=== PATIENT | male | born 1960 | race Caucasian/White ===

== ENCOUNTER → 2016-08-13 | Outpatient (CLI) | payer OTHER ==
--- NOTE | 2016-08-13 12:50 | MR ---
EXAMINATION TYPE: MR shoulder LT wo con DATE OF EXAM: 08/13/2016 10:07 AM COMPARISON: NONE HISTORY: Left shoulder pain TECHNIQUE: Multiplanar, multisequence imaging of the left shoulder is performed without contrast. FINDINGS: Rotator Cuff: There is thickening of the distal margin of the supraspinatus tendon. Findings compatib le with tendinosis. At the insertion there is a partial tear involving the anterior fibers measuring approximately 5 mm. No retraction. Acromioclavicular Joint: Mild hypertrophic change is noted. There does appear to be mass effect upon the supraspinatus tendon and muscle. Findings compatible with impingement. Glenohumeral Joint: No sizable joint effusion. Inferior glenohumeral ligament intact. Labrum: The labrum appears grossly intact given limitation of non-arthrogram study. Biceps Tendon: The long head of biceps is in normal location within bicipital groove. Fluid surroundi ng the biceps tendon is compatible with bicipital tendinosis. Bone marrow signal: Tiny cystic change involving the head of the humerus appears benign. IMPRESSION: 1. Tendinosis distal supraspinatus tendon with partial through thickness tear involving the anterior fibers measuring 5 mm. 2. Bicipital tendinosis 3. Impingement secondary to hypertrophic change AC joint
== END | disposition home or self-care (01) ==
LOC: RADMRIMAIN 09:32
PROVIDERS: ATTEND Orthopaedic Surgery
DX: S46.812A Strain of other muscles, fascia and tendons at shoulder and upper arm level, left arm, initial encounter (principal); M75.82 Other shoulder lesions, left shoulder; M75.42 Impingement syndrome of left shoulder; M89.312 Hypertrophy of bone, left shoulder

== ENCOUNTER → 2022-07-18 | Outpatient (CLI) | payer OTHER ==
[2022-07-18 14:30] LABS: HCT 46.3 % (39.6-50.0); HGB 15.2 g/dL (13.0-17.0); MCH 31.7 pg (27.0-32.0); MCHC 32.8 g/dL (32.0-37.0); MCV 96.5 fL (80.0-97.0); Mean Platelet Volume 8.5 fL (9.5-12.2); NRBC Per 100 WBC 0 /100 WBCS (0.0-0.0); Platelet Count 280 X 10*3/uL (140-440); RDW 12.3 % (11.5-14.5); WBC 5.75 X 10*3/uL (4.50-10.00)
[2022-07-18 14:48] LABS: ALT 22 U/L (10-49); AST 25 U/L (14-35); African American GFR (CKD) 91.5 (60.0-200.0); Albumin 4.3 g/dL (3.8-4.9); Albumin/Globulin Ratio 1.64 (1.60-3.17); Alkaline Phosphatase 88 U/L (41-126); Blood Urea Nitrogen 10.4 mg/dL (9.0-27.0); Calcium 9.3 mg/dL (8.7-10.3); Carbon Dioxide 27.2 mmol/L (20.0-27.5); Chloride 99 mmol/L (96-109); Chol/HDL Ratio 2.24 Ratio; Globulin 2.6 g/dL (1.6-3.3); Glucose 98 mg/dL (70-110); LDL Cholesterol,Calculated 77.9 mg/dL (0.0-131.0); Potassium 4.7 mmol/L (3.5-5.5); Sodium 135 mmol/L (135-145); Total Protein 6.8 g/dL (6.2-8.2); VLDL Calculation 12.78 mg/dL (5.00-40.00)
[2022-07-18 21:42] LABS: Appearance,Urine Clear (Clear); Bilirubin,Urine Negative (Negative); Blood,Urine Negative (Negative); Color,Urine Yellow (Yellow); Ketones,Urine Negative (Negative); Nitrite,Urine Negative (Negative); Specific Gravity,Urine 1.015 (1.001-1.030); Urobilinogen,Urine 0.2 (0.2,1.0)
== END | disposition home or self-care (01) ==
LOC: LABWHC1 08:44
PROVIDERS: ATTEND Family Medicine
DX: Z00.00 Encounter for general adult medical examination without abnormal findings (principal); Z12.5 Encounter for screening for malignant neoplasm of prostate
CPT/HCPCS: 80061; 80053; 85027; 81003; 36415; G0103

== ENCOUNTER → 2023-07-21 | Outpatient (CLI) | payer OTHER ==
--- NOTE | 2023-07-21 09:27 | XR ---
EXAMINATION TYPE: XR chest 2V DATE OF EXAM: 07/21/2023 9:24 AM CLINICAL INDICATION:Male, 62 years old with history of Z01.818 encounter for preprocedural exam; [facility] COMPARISON: None TECHNIQUE: XR chest 2V Frontal and lateral views of the chest. FINDINGS: Lungs/Pleura: There is no evidence of pleural effusion, focal consolidation, or pneumothorax. Pulmonary vascularity: Unremarkable. Heart/mediastinum: Cardiomediastinal silhouette is unremarkable. Musculoskeletal: No acute osseous pathology. IMPRESSION: No acute cardiopulmonary disease/process.
[2023-07-21 09:32] LABS: Partial Thromboplastin Time 24.6 sec (22.0-30.0)
[2023-07-21 15:19] LABS: Appearance,Urine Clear (Clear); Bilirubin,Urine Negative (Negative); Blood,Urine Negative (Negative); Color,Urine Yellow (Yellow); Ketones,Urine Negative (Negative); Nitrite,Urine Negative (Negative); PH, Urine 6.5; Specific Gravity,Urine 1.018 (1.001-1.030); Urobilinogen,Urine 0.2 E.U./DL
[2023-07-21 15:39] LABS: HCT 47.8 % (39.6-50.0); HGB 15.3 g/dL (13.0-17.0); Mean Platelet Volume 8.9 FL (9.5-12.2); NRBC Per 100 WBC 0 X 10*3/uL (0.00-0.01); Platelet Count 252 X 10*3/uL (140-440); RBC 4.78 X 10*6/uL (4.40-5.60); RDW 13.2 % (11.5-14.5); WBC 6.77 X 10*3/uL (4.50-10.00)
[2023-07-21 15:53] LABS: ALT 29 U/L (10-49); AST 26 U/L (14-35); Albumin 4.1 g/dL (3.8-4.9); Albumin/Globulin Ratio 1.86 Ratio (1.60-3.17); Alkaline Phosphatase 80 U/L (41-126); BUN/Creat Ratio 13.89 Ratio (12.00-20.00); Blood Urea Nitrogen 12.5 mg/dL (9.0-27.0); Calcium 8.9 mg/dL (8.7-10.3); Carbon Dioxide 27.8 mmol/L (21.6-31.8); Chloride 100 mmol/L (96-109); Chol/HDL Ratio 2.24 Ratio; Globulin 2.2 g/dL (1.6-3.3); Glucose 93 mg/dL (70-110); LDL Cholesterol,Calculated 75.8 mg/dL (0.0-131.0); Potassium 4.9 mmol/L (3.5-5.5); Prostate Specific Antigen 0.12 ng/mL (0.000-4.500); Sodium 135 mmol/L (135-145); Total Bilirubin 0.3 mg/dL (0.3-1.2); Total Protein 6.3 g/dL (6.2-8.2); VLDL Calculation 7.82 mg/dL (5.00-40.00)
== END | disposition home or self-care (01) ==
LOC: LABWHC1 08:42
PROVIDERS: ATTEND Family Medicine
DX: Z01.818 Encounter for other preprocedural examination (principal)
CPT/HCPCS: 36415; 71046; 80053; 80061; 81003; 84153; 85027; 85610; 85730

== ENCOUNTER → 2023-07-28 | Outpatient (CLI) | payer OTHER ==
[2023-07-28 13:38] LABS: INR 1.1 (<1.2); Partial Thromboplastin Time 25.5 sec (22.0-30.0); Prothrombin Time 11.5 sec (10.0-12.5)
[2023-07-28 15:47] LABS: BUN/Creat Ratio 14.44 Ratio (12.00-20.00); Carbon Dioxide 29.1 mmol/L (21.6-31.8); Chloride 99 mmol/L (96-109); Glucose 83 mg/dL (70-110); Potassium 5.1 mmol/L (3.5-5.5); Sodium 137 mmol/L (135-145)
[2023-07-28 15:48] LABS: ALT 27 U/L (10-49); AST 22 U/L (14-35); Albumin 4.3 g/dL (3.8-4.9); Albumin/Globulin Ratio 1.95 Ratio (1.60-3.17); Alkaline Phosphatase 82 U/L (41-126); Calcium 9.6 mg/dL (8.7-10.3); Globulin 2.2 g/dL (1.6-3.3); Total Bilirubin 0.3 mg/dL (0.3-1.2); Total Protein 6.5 g/dL (6.2-8.2)
[2023-07-28 16:10] LABS: HCT 45.6 % (39.6-50.0); HGB 15.3 g/dL (13.0-17.0); MCHC 33.6 g/dL (32.0-37.0); MCV 95.4 FL (80.0-97.0); Mean Platelet Volume 8.7 FL (9.5-12.2); NRBC Per 100 WBC 0 X 10*3/uL (0.00-0.01); Platelet Count 270 X 10*3/uL (140-440); RBC 4.78 X 10*6/uL (4.40-5.60); RDW 12.7 % (11.5-14.5); WBC 7.13 X 10*3/uL (4.50-10.00)
== END | disposition home or self-care (01) ==
LOC: LABPAT 12:48
PROVIDERS: ATTEND Orthopaedic Surgery
DX: Z01.812 Encounter for preprocedural laboratory examination (principal); Z22.322 Carrier or suspected carrier of Methicillin resistant Staphylococcus aureus; M16.11 Unilateral primary osteoarthritis, right hip; E11.9 Type 2 diabetes mellitus without complications
CPT/HCPCS: 36415; 80053; 82272; 83036; 85027; 85610; 85730; 86850; 86900; 86901; 87070

== ENCOUNTER 2023-08-06 13:34 | Day surgery (SDC) | payer OTHER ==
[~2023-08-06 13:34] MED LIST: DEXAMETHASONE SOD PHOSPHATE 10 MG/ML 1 ML VIAL IV PRN; HYDROmorphone 0.5 MG/0.5 ML SYRINGE IVP PRN; LIDOCAINE 1% (10MG/ML) FOR IV START INTRADERMA PRN; ONDANSETRON 4 MG/2 ML VIAL IVP PRN; TRANEXAMIC 1,000 MG/100ML-NACL 1,000 MG in SALINE 1 100ML.BAG IV PRN; TRANEXAMIC 1,000 MG/100ML-NACL 1,000 MG in SALINE 1 100ML.BAG IVPB PRN
[2023-08-06] MEDS: LACTATED RINGERS 1,000 ML IV SCH (14:30)
[2023-08-06] MEDS: ACETAMINOPHEN TAB 500 MG TAB PO PRN (14:42)
[2023-08-06] MEDS: oxyCODONE ER 10 MG TAB.ER.12H PO PRN (14:42)
[2023-08-06] MEDS: DOCUSATE 100 MG CAP PO PRN (14:42)
[2023-08-06] MEDS: MIDAZOLAM 2 MG/2 ML VIAL IV PRN (14:46)
[2023-08-06] MEDS: FAMOTIDINE 20 MG/2 ML VIAL IVP PRN (14:50)
[2023-08-06] MEDS: ONDANSETRON 4 MG/2 ML VIAL IVP ONE (14:50)
[2023-08-06] MEDS: KETOROLAC 15 MG/ML 1 ML VIAL IVP PRN (14:50)
[2023-08-06] MEDS: DEXAMETHASONE SOD PHOSPHATE 4 MG/ML 1 ML VIAL IV ONE (14:50)
--- NOTE | 2023-08-06 14:55 | P.ANPRN ---
Procedure Note - Anesthesia - Nerve Block Performed Right Good Single Time Out Performed: Yes Date of Procedure: 08/06/23 Procedure Start Time: 14:45 Procedure Stop Time: 14:50 Location of Patient: PreOp Indication: Acute Post-Operative Pain, Analgesia, Requested by Surgeon Sedation Type: Sedate with meaningful contact maintained Preparation: Sterile Prep Position: Supine Catheter: None Needle Types: Pajunk Needle Gauge: 21 Ultrasound used to visualize needle placement: Yes Ultrasound used to observe medication spread: Yes Injectate: 0.5% Ropivacaine (see comment for volume) (Ropiv 30ml+4 mg dexamethason) Blood Aspirated: No Pain Paresthesia on Injection Noted: No Resistance on Injection: Normal Image Stored and Saved: Yes Events: Uneventful and Well Tolerated
[2023-08-06] MEDS ORDERED: NALOXONE 0.4 MG/ML 1 ML VIAL IV PRN (15:01)
[2023-08-06] MEDS ORDERED: HYDROmorphone 0.5 MG/0.5 ML SYRINGE IVP PRN ×2 (15:01)
[2023-08-06] MEDS ORDERED: ONDANSETRON 4 MG/2 ML VIAL IVP PRN (15:01)
[2023-08-06] MEDS ORDERED: MAGNESIUM HYDROXIDE 2,400 MG/30 ML CUP PO PRN (15:01)
[2023-08-06] MEDS ORDERED: HYDROmorphone 1 MG/ML 1 ML SYRINGE IVP PRN (15:01)
[2023-08-06] MEDS ORDERED: HYDROcodone/APAP 7.5-325MG 1 EACH TAB PO PRN (15:04)
[2023-08-06] MEDS ORDERED: ROPIVACAINE 5 MG/ML 30 ML VIAL ONE (15:30)
[2023-08-06] MEDS ORDERED: MIDAZOLAM 2 MG/2 ML VIAL ONE (15:30)
[2023-08-06] MEDS ORDERED: LIDOCAINE 1% INJ 10MG/ML (20 ML MDV) ONE (15:30)
[2023-08-06] MEDS ORDERED: DEXAMETHASONE SOD PHOSPHATE 10 MG/ML 1 ML VIAL ONE (15:30)
[2023-08-06] MEDS ORDERED: NEOSTIGMINE 1 MG/ML 10 ML VIAL ONE (15:30)
[2023-08-06] MEDS ORDERED: fentaNYL (PF) 50 MCG/ML 2 ML AMP ONE (15:30)
[2023-08-06] MEDS ORDERED: GLYCOPYRROLATE 0.2 MG/ML 2 ML VIAL ONE (15:30)
[2023-08-06] MEDS ORDERED: PROPOFOL 10 MG/ML 20 ML VIAL IV ONE (15:30)
[2023-08-06] MEDS ORDERED: ROCURONIUM 10 MG/ML (5 ML VIAL) IV ONE (15:30)
[2023-08-06] MEDS ORDERED: TRANEXAMIC 1,000 MG/100ML-NACL PREMIX BAG ONE (15:30)
[2023-08-06] MEDS ORDERED: SUCCINYLCHOLINE CHLORIDE 200 MG/10 ML VIAL IV ONE (15:30)
[2023-08-06] MEDS: LACTATED RINGERS 1,000 ML IV ONE ×2 (16:16→16:48)
[2023-08-06] MEDS: ROPIVACAINE/EPI/CLONIDINE/KET 50 ML SYRINGE MISCELLANE PRN (16:16)
--- NOTE | 2023-08-06 17:58 | P.OP ---
Date of Procedure: 08/06/23 Preoperative Diagnosis: Severe right hip osteoarthritis Postoperative Diagnosis: Same Procedure(s) Performed: Right direct anterior total hip arthroplasty Implants: 1. Ree Trident II Acetabular Cup, Size #56 2. Ree Insignia Size #5 Femoral Stem, High Offset 3. Biolox delta femoral head, 36 mm, -5mm neck Anesthesia: CAIT, regional Surgeon: Sunil Toribio Estimated Blood Loss (ml): 200 IV fluids (ml): 800 Pathology: none sent Condition: stable Disposition: PACU Indications for Procedure: I had a long discussion with the patient in the office on the potential risks and complications of an elective total hip replacement through a direct anterior approach. Risks discussed include, but are certainly not limited to, risks from anesthesia, superficial infection requiring local wound care or antibiotics, deep alexi-prosthetic joint infection and the treatment required to eradicate infection, intraoperative fracture, postoperative periprosthetic fracture, damage to local blood vessels or nerves particularly the lateral femoral cutaneous nerve, delayed wound healing requiring local wound care or possibly surgical debridement, hip dislocation, leg length discrepancy, soft tissue irritation around the total hip implant such as iliopsoas tendinitis or trochanteric bursitis, wear and osteolysis from the implants, squeaking or audible noises, groin pain, thigh pain, heterotopic ossification, stiffness, aseptic loosening of the implants, dissatisfaction with surgical outcome, need for revision surgery, DVT, PE, swelling of the operative extremity, acute coronary event, stroke, failure to thrive, and possibly loss of life or limb. The patient understands that while these are the most common complications after an elective hip replacement there are certainly other less common complications possible. They were given ample time to ask questions regarding the potential complications of a hip replacement. Following our discussion the patient provided their verbal and written consent to go forward with an elective total hip replacement. Operative Findings: Severe right hip osteoarthritis Description of Procedure: The patient was identified in the preoperative holding area and the correct hip was marked with my initials. I reviewed the procedure and consent with the patient. All of their questions were answered. The patient was then brought back into the operating room by anesthesia. While on the [facility] anesthesia was administered by the anesthesia team. Preoperative antibiotics and tranexamic acid were also given. After the patient was under anesthesia I examined their ankles to determine their preoperative leg length discrepancy. The skin over the anterior aspect of the hip was shaved to remove hair over the site of planned incision. Both feet and ankles were padded with webril and boots for the [place] were applied. The patient was then carefully transferred onto the [place] table. A perineal post was immediately placed. The arms were placed on arm holders and were well-padded. Both boots were secured to the spars on the [place] table. The patient was positioned so that the pelvis was centered over the post. Nonsterile drapes were applied. A timeout was performed identifying the correct patient, operative extremity, and procedure. At this point fluoroscopy was brought in to take preoperative images of the pelvis and operative hip. Using the standing AP pelvis from the office as a template, a comparable image was obtained with fluoroscopy. A metallic bar was used to create a bi-ischial line for use as a reference to leg length adjustments during the procedure. Global offset was also measured on both the operative and nonoperative leg. Fluoroscopy was then brought out and a pre-scrub using a chlorhexidine scrub brush was performed. The operative limb was then prepped and draped in the standard sterile fashion. An anterior longitudinal incision was made lateral and distal to the ASIS. The skin and subcutaneous tissues were incised sharply. The underlying tensor fascia was identified and incised in its midportion. The fascia was dissected free from the underlying muscle and the muscle belly was retracted. A blunt tipped cobra retractor was placed over the superior neck under the muscle fibers of the gluteus minimus. The deep enveloping fascia of the tensor was incised. The anterior leash of vessels were then identified and cauterized. The fascia between the rectus and the capsule was then incised and the pre-capsular fat was excised. A second Cobra was placed inferior to the neck. The interval between the rectus and iliocapsularis and the hip capsule was developed and a retractor was placed carefully over the anterior rim of the acetabulum. A T-shaped anterior capsulotomy was performed. The superior capsular leaflet was left in place in the inferior capsular flap was excised. The Cobra retractors were placed intracapsularly. We then made a femoral neck osteotomy according to preoperative and intraoperative templating and confirmed the level of the osteotomy using fluoroscopic imaging. The femoral head was removed, passed off to the back table, and sized. The superior capsular flap was excised. Retractors were placed circumferentially exposing the acetabulum. We then circumferentially debrided the acetabulum free of labrum and osteophytes. The pulvinar was removed to fully visualize the cotyloid fossa. We then sequentially reamed to achieve peripheral fit and excellent bleeding subchondral bone. The socket was thoroughly irrigated. The acetabular component was impacted into the appropriate position using fluoroscopy to guide version, inclination, and depth of insertion taking care to have a comparable image of the AP pelvis to the standing image taken in the office. An excellent press-fit was achieved and final position was confirmed using fluoroscopy. The press fit was augmented with bony cancellus dome screws. The liner was then impacted into the socket. Attention was then turned to the femur. The remnant dorsal lateral capsule was excised. The short external rotators were visible and protected. A bone hook was used to confirm appropriate translation of the trochanter away from the acetabulum. The leg was then extended and adducted and the bone hook was used to elevate the femur for broaching. A box osteotome and blunt tipped canal sound was then utilized to gain access to the femoral canal. We then sequentially broached the femur in appropriate anteversion until excellent torsional stability was achieved. The neck cut was brought flush to the trial broach with a calcar planar. A trial neck and head were then placed onto the broach and the hip was atraumatically reduced under direct visualization. External rotation to 90 was performed to assess stability. Fluoroscopy was brought in. An AP and lateral fluoroscopic image of the proximal femur was obtained to assess position and fill of the trial broach. An AP of the pelvis was then obtained and matched to the preoperative image taken. A bi-ischial bar was then placed and measurements were taken to assess changes in length and offset. The hip was then carefully dislocated, the proximal femur was exposed, and the trial implants were removed. The wound and proximal femur was thoroughly irrigated using sterile saline and pulsatile lavage. The final femoral implant was dispensed and gently tapped into place generating an excellent press-fit. The trunnion was cleansed and the final head was tapped into place to engage the Hernández taper. The acetabulum was irrigated and visualized to be free of debris. The hip was carefully reduced. Stability was checked clinically with external rotation to 90 and there was no evidence of instability. Final fluoroscopic images were taken. The wound was then thoroughly irrigated and soaked with a dilute Betadine rinse for 3 minutes. 3 L of sterile saline was irrigated through the wound using pulsatile lavage. Local anesthetic cocktail was injected into the soft tissues around the surgical field. The wound was then closed in layers. A sterile dressing was placed over the surgical incision. The drapes were taken down and the patient was carefully transferred off of the [place] table. Following removal of the boots the leg lengths felt acceptable. The patient was then taken to recovery room having tolerated the procedure well. PLAN: The patient can weight-bear as tolerated on the operative extremity. DVT prophylaxis with aspirin 81 mg twice a day based on preoperative risk stratifica tion. Physical therapy for gait training. Leave surgical dressing in place. Internal medicine for perioperative medical management.
[2023-08-06] MEDS: MEPERIDINE 50 MG/ML SYRINGE IVP ONE (18:05)
[2023-08-06] MEDS: SODIUM CHLORIDE 0.9% 1,000 ML IV SCH (18:44)
--- NOTE | 2023-08-06 18:48 | FL ---
EXAMINATION TYPE: FL guidance operating room, XR Hip Limited RT Intraoperative/procedural fluoroscopi c services were provided. Total fluoroscopy time is 39 seconds with a total of 7 submitted images to PACS. Please see the operative/procedural note for further details. DAP: 1.0332 Gycm2
[2023-08-06] MEDS: SENNOSIDES-DOCUSATE SODIUM 1 EACH TAB PO SCH (21:45)
[2023-08-06] MEDS: ASPIRIN 81 MG PO SCH (21:45)
[2023-08-07] MEDS: HYDROcodone/APAP 7.5-325MG 1 EACH TAB PO PRN (02:05)
--- NOTE | 2023-08-07 07:46 | P.DS ---
Providers Date of admission: 08/06/2023 Attending physician: Sunil Toribio Consults: 08/06/23 15:01 Consult Physician Routine Consulting Provider: Narciso Randolph Consult Reason/Comments: medical management Do you want consulting provider notified?: Yes Primary care physician: [facility] Hospital Course: Patient is a very pleasant. They healthy 62-year-old male who was [facility] yesterday and underwent an uncomplicated right total hip replacement. Following surgery he was transferred to the orthopedic floor in stable condition. He received 2 doses of postoperative antibiotics. He was transitioned from IV to oral pain medication. He was seen by myself on postoperative day #1. His dressing was intact. There is moderate swelling throughout the leg but his thigh and calf are soft and compressible. Femoral nerve function was intact. The patient was actively able to plantarflex and dorsiflex his ankle and his toes. He worked with physical therapy and was ultimately cleared for discharge home. Plan - Discharge Summary Discharge Rx Participant: No New Discharge Prescriptions: New HYDROcodone/APAP 7.5-325MG [[place] 7.5-325] 1 - 2 tab PO Q6H PRN #32 tab PRN Reason: Pain Omeprazole [PriLOSEC] 20 mg PO DAILY #30 cap Aspirin [Adult Low Dose Aspirin EC] 81 mg PO BID 30 Days #60 tab Sennosides [Senokot] 2 tab PO DAILY PRN #60 tablet PRN Reason: Constipation Diclofenac Sodium [Voltaren] 75 mg PO BID #60 tab No Action [facility] 1 tab PO QAM Pramipexole [Mirapex] 0.25 mg PO HS Discharge Medication List [facility] 1 tab PO QAM 08/01/23 [History] Pramipexole [Mirapex] 0.25 mg PO HS 08/01/23 [History] Aspirin [Adult Low Dose Aspirin EC] 81 mg PO BID 30 Days #60 tab 08/06/23 [Rx] Diclofenac Sodium [Voltaren] 75 mg PO BID #60 tab 08/06/23 [Rx] HYDROcodone/APAP 7.5-325MG [[place] 7.5-325] 1 - 2 tab PO Q6H PRN #32 tab 08/06/23 [Rx] Omeprazole [PriLOSEC] 20 mg PO DAILY #30 cap 08/06/23 [Rx] Sennosides [Senokot] 2 tab PO DAILY PRN #60 tablet 08/06/23 [Rx] Follow up Appointment(s)/Referral(s): Sunil Toribio MD [Medical Doctor] - 2 Weeks Activity/Diet/Wound Care/Special Instructions: 1. Weight-bear as tolerated on your operative extremity unless instructed otherwise. Use a walker or other assistive device to ambulate. 2. Leave surgical dressing in place. If your dressing becomes saturated with blood, there is drainage, or the dressing becomes loose please contact the office. 3. It is okay to shower with your surgical dressing, but do not submerge in water (no hot tubs, bath's, swimming etc.) 4. Make sure to take her blood clot prevention medication as prescribed (aspirin, Eliquis, Xarelto, and Plavix are commonly prescribed medications for blood clot prevention) 5. While taking [place] or Percocet for pain make sure you're taking a stool softener (Colace) and drink lots of water. 6. Keep all follow-up appointments as scheduled. You will usually be seen in 1-2 weeks following surgery. 7. Please contact the office with any questions or concerns [phone] Discharge Disposition: HOME WITH HOME HEALTH SERVICES
[2023-08-07 08:26] VITALS: BP 100/62; PULSE 69; RESP 17; TEMP 98.4
[2023-08-07 10:48] LABS: Basophils # (A) 0.01 X 10*3/uL (0.00-0.10); Basophils % (A) 0.1 %; Eosinophils # (A) 0.01 X 10*3/uL (0.04-0.35); Eosinophils % (A) 0.1 %; HGB 10.9 g/dL (13.0-17.0); Lymphocytes # (A) 1.07 X 10*3/uL (0.90-5.00); MCH 32.2 pg (27.0-32.0); MCHC 34.1 g/dL (32.0-37.0); MCV 94.4 FL (80.0-97.0); Mean Platelet Volume 8.7 FL (9.5-12.2); Monocytes # (A) 1.24 X 10*3/uL (0.20-1.00); Monocytes % (A) 8.1 %; NRBC Per 100 WBC 0 X 10*3/uL (0.00-0.01); Neutrophils # (A) 12.98 X 10*3/uL (1.80-7.70); Neutrophils % (A) 84.3 %; Platelet Count 210 X 10*3/uL (140-440); RBC 3.39 X 10*6/uL (4.40-5.60); RDW 12.4 % (11.5-14.5); WBC 15.37 X 10*3/uL (4.50-10.00)
--- NOTE | 2023-08-07 11:38 | P.CONS ---
History of Present Illness - Reason for Consult Leukocytosis - History of Present Illness Patient is a pleasant 60-year-old male admitted for left hip arthroplasty patient is clinically doing well denies any fever chills is passing gas still has significant pain. Patient does have leukocytosis without any evidence of infection at this time patient used to be a smoker and has a slight wheeze in bilateral lower lung bases. Offered him as needed albuterol at home but patient feels fine and does not want to use any inhalers. REVIEW OF SYSTEMS: CONSTITUTIONAL: No fever, no malaise, no fatigue. HEENT: No recent visual problems or hearing problems. Denied any sore throat. CARDIOVASCULAR: No chest pain, orthopnea, PND, no palpitations, no syncope. PULMONARY: No shortness of breath, no cough, no hemoptysis. GASTROINTESTINAL: No diarrhea, no nausea, no vomiting, no abdominal pain. NEUROLOGICAL: No headaches, no weakness, no numbness. HEMATOLOGICAL: Denies any bleeding or petechiae. GENITOURINARY: Denies any burning micturition, frequency, or urgency. MUSCULOSKELETAL/RHEUMATOLOGICAL: Denies any joint pain, swelling, or any muscle pain. ENDOCRINE: Denies any polyuria or polydipsia. The rest of the 14-point review of systems is negative. PHYSICAL EXAMINATION: GENERAL: The patient is alert and oriented x3, not in any acute distress. Well developed, well nourished. HEENT: Pupils are round and equally reacting to light. EOMI. No scleral icterus. No conjunctival pallor. Normocephalic, atraumatic. No pharyngeal erythema. No thyromegaly. CARDIOVASCULAR: S1 and S2 present. No murmurs, rubs, or gallops. PULMONARY: wheezing ABDOMEN: Soft, nontender, nondistended, normoactive bowel sounds. No palpable organomegaly. MUSCULOSKELETAL: No joint swelling or deformity. EXTREMITIES: No cyanosis, clubbing, or pedal edema. NEUROLOGICAL: Gross neurological examination did not reveal any focal deficits. SKIN: No rashes. Assessment and plan -Leukocytosis reactive in nature without any evidence of infection patient is medically stable to be discharged -Mild undiagnosed COPD patient is not symptomatic at this time. Patient already quit smoking. -Left hip arthroplasty management as per primary service. DVT prophylaxis per primary service -Benign prostatic hypertrophy Patient can be discharged from medical perspective Past Medical History Past Medical History: Hearing Disorder / Deafness, Osteoarthritis (OA), Pneumonia, Prostate Disorder Additional Past Medical History / Comment(s): Wears hearing aides, RLS, BPH, diverticular disease. History of Any Multi-Drug Resistant Organisms: None Reported Past Surgical History: Joint Replacement Additional Past Surgical History / Comment(s): L hip total hip, colonoscopies. Past Anesthesia/Blood Transfusion Reactions: No Reported Reaction Past Psychological History: Depression Additional Psychological History / Comment(s): Resides with spouse. Smoking Status: Former smoker Past Alcohol Use History: Occasional Additional Past Alcohol Use History / Comment(s): Started smoking as teen, quit many time/sometimes for years, last quit approx 2 weeks. Past Drug Use History: None Reported - Past Family History Father Additional Family Medical History / Comment(s): Lung disease Mother Family Medical History: Osteoarthritis (OA) Medications and Allergies Home Medications Medication Instructions Recorded Confirmed Type [facility] 1 tab PO QAM 08/01/23 08/06/23 History Pramipexole [Mirapex] 0.25 mg PO HS 08/01/23 08/06/23 History Aspirin [Adult Low Dose Aspirin EC] 81 mg PO BID 30 Days #60 tab 08/06/23 Rx Diclofenac Sodium [Voltaren] 75 mg PO BID #60 tab 08/06/23 Rx HYDROcodone/APAP 7.5-325MG [[place] 1 - 2 tab PO Q6H PRN #32 tab 08/06/23 Rx 7.5-325] Omeprazole [PriLOSEC] 20 mg PO DAILY #30 cap 08/06/23 Rx Sennosides [Senokot] 2 tab PO DAILY PRN #60 tablet 08/06/23 Rx Cyclobenzaprine [Flexeril] 10 mg PO TID PRN #30 tab 08/07/23 Rx Allergies Allergy/AdvReac Type Severity Reaction Status Date / Time No Known Allergies Allergy Verified 08/06/23 14:22 Physical Exam Vitals: Vital Signs Temp Pulse Resp BP Pulse Ox 08/07/23 09:54 69 17 08/07/23 07:00 98.4 F 69 17 100/62 96 08/07/23 01:35 98.1 F 64 18 102/68 95 08/06/23 21:45 65 122/77 08/06/23 21:30 70 156/64 08/06/23 21:15 80 122/77 08/06/23 21:00 76 122/82 08/06/23 20:45 65 126/75 08/06/23 20:30 63 136/88 08/06/23 20:15 73 132/84 08/06/23 20:00 71 131/85 08/06/23 19:45 66 147/82 99 08/06/23 19:13 71 16 103/61 100 08/06/23 18:58 63 16 108/59 100 08/06/23 18:43 65 16 113/60 100 08/06/23 18:33 70 16 107/64 100 08/06/23 18:18 84 16 132/57 100 08/06/23 18:03 87 16 134/81 100 08/06/23 17:48 88 16 108/65 99 08/06/23 14:57 62 18 102/66 100 08/06/23 14:24 97.6 F 60 20 132/78 98 Intake and Output 08/06/23 08/07/23 08/07/23 22:59 06:59 14:59 Intake Total 1050 480 100 Output Total 100 Balance 950 480 100 Intake: IV 1050 Oral 480 100 Output: Estimated Blood Loss 100 Other: # Voids 2 Weight 63.1 kg Results CBC & Chem 7: 08/07/23 07:21 Labs: Abnormal Lab Results - Last 24 Hours (Table) 08/07/23 Range/Units 07:21 WBC 15.37 H (4.50-10.00) X 10*3/uL RBC 3.39 L (4.40-5.60) X 10*6/uL Hgb 10.9 L (13.0-17.0) g/dL Hct 32.0 L (39.6-50.0) % MCH 32.2 H (27.0-32.0) pg MPV 8.7 L (9.5-12.2) FL Immature Gran # 0.06 H (0.00-0.04) X 10*3/uL Neutrophils # 12.98 H (1.80-7.70) X 10*3/uL Monocytes # 1.24 H (0.20-1.00) X 10*3/uL Eosinophils # 0.01 L (0.04-0.35) X 10*3/uL
[2023-08-07] MEDS: CYCLOBENZAPRINE 10 MG TAB PO SCH (11:56)
[2023-08-07] MEDS ORDERED: PRAMIPEXOLE 0.25 MG TAB PO SCH (21:00)
== END 2023-08-07 12:48 | disposition home health service (06) ==
LOC: OR 13:34 → 4SSUR 17:48 → OR 08-07 12:48
PROVIDERS: ATTEND Orthopaedic Surgery
DX: M16.11 Unilateral primary osteoarthritis, right hip (principal); G89.18 Other acute postprocedural pain; Z87.891 Personal history of nicotine dependence; Z82.61 Family history of arthritis; Z79.82 Long term (current) use of aspirin; Z79.899 Other long term (current) drug therapy
CPT/HCPCS: 97161; 97166; 64447; 85025; 73501; 27130; C1776; J2250; J1100; J2175; J0690 ×2; J2405; J3490; J1885